=== PATIENT | female | born 1975 | race Caucasian/White ===

== ENCOUNTER 2017-12-20 08:06 | Day surgery (SDC) | payer MEDICAID ==
[2017-12-20] MEDS ORDERED: LR 1,000 ML IV ONE (08:20)
--- NOTE | 2017-12-20 09:26 | PDANEPAE ---
ANE History of Present Illness EGD ANE Past Medical History - Cardiovascular History Hx Hypertension: No Hx Arrhythmias: No Hx Chest Pain: No Hx Coronary Artery / Peripheral Vascular Disease: No Hx CHF / Valvular Disease: No Hx Palpitations: No - Pulmonary History Hx COPD: No Hx Asthma/Reactive Airway Disease: No Hx Recent Upper Respiratory Infection: No Hx Oxygen in Use at Home: No Hx Sleep Apnea: No Sleep Apnea Screening Result - Last Documented: Negative - Neurologic History Hx Cerebrovascular Accident: No Hx Seizures: No Hx Dementia: No - Endocrine History Hx Diabetes: No - Renal History Hx Renal Disorders: No - Liver History Hx Hepatic Disorders: No - Neurological & Psychiatric Hx Hx Neurological and Psychiatric Disorders: Yes Neurological / Psychiatric History Comment: ANXIETY - Cancer History Hx Cancer: No - Congenital Disorder History Hx Congenital Disorders: No - GI History Hx Gastrointestinal Disorders: Yes Gastrointestinal History Comment: GERD. CAN NOT TOLERATE FATTY/SPICY FOODS. ACUTE STOMACH PAIN UPPER L QUADRANT - Other Health History Other Health History: INTERMITTENT MUSCLE SPASMS LOWER BACK. ATTEMPTED EGD AND DILATION 09/2017 HAD ORAL YEAST INFECTION. TREATED WITH ANTIBIOTICS FOR 2 WEEKS. ANEMIA - Chronic Pain History Chronic Pain: Yes (CHRONIC GI) - Surgical History Prior Surgeries: HYSTERECTOMY AND BLADDER REPAIR. COLONOSCOPY. R KNEE SCOPE LIGAMENT RECONST. TUBAL LIGATION. WISDOM TEETH ANE Review of Systems Review of systems is: negative Review of Systems: - Exercise capacity METS (RN): 4 METS ANE Patient History - Allergies Allergies/Adverse Reactions: No Known Allergies Allergy (Unverified 07/05/15 16:58) - Home Medications Home medications: home medication list seen and reviewed Home Medications: Ativan PRN 12/19/17 [Last Taken 12/17/17] Flexeril 10 MG (*) PRN 12/19/17 [Last Taken 12/18/17] Herbals/Supplements -Info Only DAILY 12/19/17 [Last Taken 12/16/17] Hyoscyamine Sulfate TID 12/19/17 [Last Taken 12/20/17 06:00] Huslia 5/325 (*) HS 12/19/17 [Last Taken 12/19/17] Protonix BID 12/19/17 [Last Taken 12/20/17 06:00] Ranitidine HCl PRN 12/19/17 [Last Taken 12/06/17] - NPO status NPO Status: no food or drink >8 hours NPO Since - Liquids (Date): 12/20/17 NPO Since - Liquids (Time): 06:30 NPO Since - Solids (Date): 12/19/17 NPO Since - Solids (Time): 23:45 - Anes Hx Anes Hx: no prior problems - Smoking Hx Smoking Status: Former smoker - Family Anes Hx Family Hx Anesthesia Complications: MOTHER- DISORIENTED AND EXTREME HYPERTENSION. GRANDFATHER- ANESTHETIC DEMENTIA AND EXTREME HYPERTENSION ADMITTED TO ICU ANE Labs/Vital Signs - Vital Signs Blood Pressure: 121/72 Heart Rate: 62 Respiratory Rate: 18 O2 Sat (%): 97 Height: 167.64 cm Weight: 87.543 kg ANE Physical Exam - Airway Neck exam: FROM Mallampati Score: Class 2 Mouth exam: normal dental/mouth exam - Pulmonary Pulmonary: no respiratory distress - Cardiovascular Cardiovascular: regular rate and rhythym - ASA Status ASA Status: II ANE Anesthesia Plan Total IV Anesthesia: Yes
--- NOTE | 2017-12-20 09:28 | PDGENHP ---
History & Physical Chief Complaint: Dysphagia, GERD History of Present Illness: Dysphagia. Heartburn Pertinent Past, Social, Family History: PMH: Gerd, Chronic pain on norco, Candidial esophagitis. SH: No tobacco. No ETOH. FH: Negative for PUD or esophageal cancer Relevant Physical Exam: NAD. CTA B/L. RRR without m/r/g. GI soft. NABS. No HSM. No TTP. Cardiorespiratory Assessment: ASA III. EGD with MAC
[2017-12-20] MEDS ORDERED: PROPOFOL/EMULSION 500 MG/50 ML BOTTLE IV ONE (09:33)
[2017-12-20] MEDS ORDERED: LIDOCAINE 2% 100 MG/5 ML SYR ONE (09:48)
--- NOTE | 2017-12-20 09:48 | GIREPORT ---
Formerly [facility] Surgical Services - Endoscopy Department Patient Name: Vaishnavi Acosta Procedure Date: 12/20/2017 9:24 AM Patient Type: Outpatient Attending MD/ ER Physician: Claudio Calvert MD Procedure: Upper GI endoscopy Indications: Dysphagia Providers: Claudio Calvert MD Medicines: Propofol per Anesthesia Complications: No immediate complications. Description of Procedure: After obtaining informed consent, the endoscope was passed under direct vision. Throughout the procedure, the patient's blood pressure, pulse, and oxygen saturations were monitored continuously. The Endoscope was intro duced through the mouth, and advanced to the second part of duodenum. [facility] endoscopy was accomplished without difficulty. The patient tolerated th e procedure well. Findings: The examined esophagus was normal. A guidewire was placed and the scope was withdrawn. Dilation was performed with a Savary dilator with no resista nce at 54 Fr. The stomach was normal. The duodenal bulb, first portion of the duodenum and second portion of the duodenum were normal. Estimated Blood Loss: Estimated blood loss: none. Post Op Diagnosis: - Normal esophagus. Dilated. - Normal stomach. - Normal duodenal bulb, first portion of the duodenum and second portio n of the duodenum. - No specimens collected. - No endoscopic cause for dysphagia. Emperic savary dilation was perfor med. Recommendation: - Return to physician ice cream freezer assistant as previously scheduled. - Resume previous diet. - Continue present medications. - I would not recommend repeat EGD for her dysphagia. - If this continues esophageal manometry will be considered. I suspect that her symptom is functional. - Patient has a contact number available for emergencies. The signs and symptoms of potential delayed complications were discussed with the pat ient. Return to normal activities tomorrow. Written discharge instructions we re provided to the patient. - Thank you for allowing me to be involved in the care of your patient. Attending Participation: I personally performed the entire procedure without the assistance of a fellow, resident or surg ical ice cream freezer assistant. Claudio Calvert MD Claudio Calvert MD 12/20/2017 9:47:45 AM This report has been signed electronicallyDavid MD Nehal Number of Addenda: 0 Note Initiated On: 12/20/2017 9:24 AM [email or web address]
[2017-12-20] MEDS ORDERED: ACETAMINOPHEN 500 MG TAB PO PRN (09:56)
[2017-12-20] MEDS ORDERED: DEXAMETHASONE 4 MG/ML VIAL IVP PRN (09:56)
[2017-12-20] MEDS ORDERED: HYDROmorphONE/DILAUDID 2 MG/ML INJ IVP PRN (09:56)
[2017-12-20] MEDS ORDERED: HYDROCODONE/APAP 5/325 TAB PO PRN (09:56)
[2017-12-20] MEDS ORDERED: ONDANSETRON 4 MG/2 ML VIAL IVP PRN (09:56)
[2017-12-20] MEDS ORDERED: fentaNYL 100 MCG/2 ML INJ IVP PRN (09:56)
[2017-12-20] MEDS ORDERED: NALOXONE HCL 0.4 MG/ML INJ IVP PRN (09:56)
[2017-12-20] MEDS ORDERED: oxyCODONE IR 5 MG TAB PO PRN (09:56)
--- NOTE | 2017-12-20 09:56 | POSTANESTH ---
Post Anesthetic Evaluation Cardiovascular Status: Normal, Stable, Similar to Pre-Op Cond Respiratory Status: Normal, Stable, Similar to Pre-op Cond. Level of Consciousness/Mental Status: Can Participate in Eval, Mildly Sleepy, Arousable Pain Control: Adequate, Prn Tx Ordered Nausea/Vomiting Control: Adequate, Prn Tx Ordered Complications Possibly Related to Anesthesia: None Noted
[2017-12-20] MEDS ORDERED: HYDROCODONE/APAP 5/325 TAB ONE (10:13)
[2017-12-20] MEDS ORDERED: fentaNYL 100 MCG/2 ML INJ ONE (10:13)
[2017-12-20 10:54] VITALS: BP 127/68
== END 2017-12-20 11:20 | disposition home or self-care (01) ==
LOC: FSGY 08:06
PROVIDERS: ATTEND Internal Medicine Gastroenterology
PROC: 0D758ZZ Dilation of Esophagus, Via Natural or Artificial Opening Endoscopic (ICD-10-PCS; principal; 2017-12-20 09:45)
DX: R13.10 Dysphagia, unspecified (principal); K21.9 Gastro-esophageal reflux disease without esophagitis; G89.29 Other chronic pain
CPT/HCPCS: J2001; J2704; J3010